=== PATIENT | male | born 1960 | race Caucasian/White ===

== ENCOUNTER 2023-02-10 06:43 | Day surgery (SDC) | payer OTHER ==
[~2023-02-10] VITALS: Ht 177.8 cm; Wt 102.4 kg
[~2023-02-10 06:43] MED LIST: ASCO500 PO; CALPHO600 PO; CARI350 PO; HYDR1TAB94; IRON PO; KENALOG; LISI5; Norco 5-325 Ta1 EACH PO; OMEP40CA12 PO; OXAP600; PROACE100 PO; SOMA350 MG; SOMA350 MG PO; TEMA15 PO; VITAMIN B-12 PO
[2023-02-10] MEDS ORDERED: OMEP20ER PO (07:04)
[2023-02-10] MEDS ORDERED: SYMBICORT 160-4.6 GM (07:06)
[2023-02-10] MEDS ORDERED: TIOT18 INH (07:06)
[2023-02-10] MEDS ORDERED: FLUO10 PO (07:07)
[2023-02-10] MEDS ORDERED: INSULANI (07:07)
[2023-02-10] MEDS ORDERED: METF500 PO ×2 (07:07)
[2023-02-10] MEDS ORDERED: CYCL10 PO (07:10)
[2023-02-10] MEDS ORDERED: ALBU90OI6 INH (07:10)
[2023-02-10 08:30] VITALS: BP 127/81
== END 2023-02-10 08:40 | disposition home or self-care (01) ==
LOC: ORSCSDS 06:43
PROVIDERS: Ophthalmology
PROC: 08DK3ZZ Extraction of Left Lens, Percutaneous Approach (ICD-10-PCS; principal; 2023-02-10 08:00)
DX: E11.36 Type 2 diabetes mellitus with diabetic cataract (principal); H25.12 Age-related nuclear cataract, left eye; Z96.1 Presence of intraocular lens; J44.9 Chronic obstructive pulmonary disease, unspecified; I10 Essential (primary) hypertension; K21.9 Gastro-esophageal reflux disease without esophagitis; E66.9 Obesity, unspecified; Z68.32 Body mass index [BMI] 32.0-32.9, adult; Z79.899 Other long term (current) drug therapy
CPT/HCPCS: 82947; J2250; J3010; J3301; J7040; V2632

== ENCOUNTER 2023-12-13 09:41 | Emergency (ER) | payer OTHER ==
[~2023-12-13] VITALS: Ht 177.8 cm; Wt 99.8 kg
[~2023-12-13 09:41] MED LIST changes: +ALBU90OI6 INH; +CYCL10 PO; +FLUO10 PO; +INSULANI; +METF500 PO; +OMEP20ER PO; +SYMBICORT 160-4.6 GM; +TIOT18 INH
[2023-12-13 10:13] VITALS: BP 137/102
== END 2023-12-13 11:34 | disposition home or self-care (01) ==
LOC: ER 09:41
DX: M79.651 Pain in right thigh (principal); Z87.891 Personal history of nicotine dependence; J44.89 Other specified chronic obstructive pulmonary disease; I10 Essential (primary) hypertension; E11.9 Type 2 diabetes mellitus without complications; Z79.4 Long term (current) use of insulin; Z79.899 Other long term (current) drug therapy; Z79.84 Long term (current) use of oral hypoglycemic drugs; Z88.5 Allergy status to narcotic agent; Z88.8 Allergy status to other drugs, medicaments and biological substances
CPT/HCPCS: 93971; 99283-25